=== PATIENT | female | born 1985 | race Caucasian/White ===

== ENCOUNTER 2017-02-11 14:59 | Emergency (ER) | payer BC ==
[2017-02-11 16:39] VITALS: BP 118/80
--- NOTE | 2017-02-11 16:44 | UC ---
Eye Complaint HPI - HPI Summary HPI Summary: awoke with itching red eyes this morning-no fb, no contacts, also had a brief (couple of hours) tick attached to her back last night - History of Current Complaint Chief Complaint: UCEye Stated Complaint: PINK EYE SYMPTOMS Time Seen by Provider: 02/11/17 16:38 Hx Obtained From: Patient Hx Last Menstrual Period: 02/07/17 ?: No Onset/Duration: Sudden Onset, Lasting Days - 1, Still Present Timing: Constant Severity Initially: Mild Severity Currently: Mild Pain Intensity: 3 Pain Scale Used: 0-10 Numeric Location of Injury: Conjunctiva, Other - also had a tick attached to low back for less than a couple of hours last night Character: Foreign Body Sensation Aggravating Factor(s): Nothing Alleviating Factor(s): Nothing Associated Signs And Symptoms: Positive: Drainage (Purulent) - Allergies/Home Medications Allergies/Adverse Reactions: Allergies Allergy/AdvReac Type Severity Reaction Status Date / Time No Known Allergies Allergy Verified 02/11/17 16:37 PMH/Surg Hx/FS Hx/Imm Hx Previously Healthy: Yes - Surgical History Surgical History: Yes Surgery Procedure, Year, and Place: RIGHT SHOULDER - Family History Known Family History: Positive: None Family History: no reported cardio vascular issues in family lineage - Social History Occupation: Employed Full-time - teacher Lives: With Family Alcohol Use: None Substance Use Type: None Smoking Status (MU): Never Smoked Tobacco - Immunization History Most Recent Influenza Vaccination: fall 2011 Most Recent Tetanus Shot: unknown Most Recent Pneumonia Vaccination: unknown Review of Systems Constitutional: Negative Skin: Other - small erythemic area center of lower back at Tick attahment site Eyes: Drainage - ou, Eye Redness - ou ENT: Negative Respiratory: Negative Cardiovascular: Negative Gastrointestinal: Negative Genitourinary: Negative Motor: Negative Neurovascular: Negative Musculoskeletal: Negative Neurological: Negative Psychological: Negative All Other Systems Reviewed And Are Negative: Yes Physical Exam Triage Information Reviewed: Yes Appearance: Well-Appearing, No Pain Distress, Well-Nourished Vital Signs: Initial Vital Signs Temp 98.3 F 02/11/17 16:32 Pulse 73 02/11/17 16:32 Resp 18 02/11/17 16:32 Pulse Ox 100 02/11/17 16:32 Vital Signs Reviewed: Yes Eyes: Positive: Conjunctiva Inflamed - ou, Discharge - ou ENT Exam: Normal ENT: Positive: Normal ENT inspection, Hearing grossly normal, Pharynx normal, TMs normal. Negative: Nasal congestion, Nasal drainage, Tonsillar swelling, Tonsillar exudate, Trismus, Muffled/hoarse voice Dental Exam: Normal Neck exam: Normal Neck: Positive: Supple, Nontender Respiratory Exam: Normal Respiratory: Positive: Chest non-tender, No respiratory distress, No accessory muscle use Cardiovascular Exam: Normal Cardiovascular: Positive: RRR, Pulses Normal, Brisk Capillary Refill Musculoskeletal Exam: Normal Musculoskeletal: Positive: Strength Intact, ROM Intact, No Edema Neurological Exam: Normal Neurological: Positive: Alert, Muscle Tone Normal Psychological Exam: Normal Skin Exam: Other Skin: Positive: Other - dime size erythemic area center lower back Eye Complaint Course/Dx - Course Course Of Treatment: soap and water wash to tick site, observe for s/s of LYME, polytrim eye drops OU follow with pcp prn - Differential Dx/Diagnosis Differential Diagnosis/HQI/PQRI: Conjunctivitis, Periorbital Cellulitis, Orbital Cellulitis Provider Diagnoses: b/l conjuctivitis, Tick Exposure Discharge - Discharge Plan Condition: Stable Disposition: HOME Prescriptions: Polymyx/Trimethoprim OPTH* [Polytrim OPHTH*] 1 drop BOTH EYES Q4H #1 btl Patient Education Materials: Tick Bite (ED), How to Use Eye Drops (ED), Conjunctivitis (ED) Referrals: [facility] [Provider Group] - If Needed
== END 2017-02-11 16:55 | disposition home or self-care (01) ==
LOC: UCEAST 14:59
DX: H10.9 Unspecified conjunctivitis (principal); S30.860A Insect bite (nonvenomous) of lower back and pelvis, initial encounter; W57.XXXA Bitten or stung by nonvenomous insect and other nonvenomous arthropods, initial encounter; Y93.9 Activity, unspecified; Y92.9 Unspecified place or not applicable; Y99.9 Unspecified external cause status
CPT/HCPCS: 99212; G0463